=== PATIENT | female | born 1955 | race Caucasian/White ===

== ENCOUNTER 2019-06-19 09:32 | Day surgery (SDC) | payer MEDICARE, OTHER ==
[~2019-06-19] VITALS: Ht 160 cm; Wt 95.7 kg
[2019-06-19 10:04] VITALS: BP 162/78
== END 2019-06-19 14:20 | disposition home or self-care (01) ==
LOC: OUT 09:32
PROVIDERS: ATTEND Surgery
DX: D24.2 Benign neoplasm of left breast (principal); I25.10 Atherosclerotic heart disease of native coronary artery without angina pectoris; I25.2 Old myocardial infarction; E11.9 Type 2 diabetes mellitus without complications; K21.9 Gastro-esophageal reflux disease without esophagitis; Z79.02 Long term (current) use of antithrombotics/antiplatelets; Z88.0 Allergy status to penicillin; Z88.1 Allergy status to other antibiotic agents; Z95.5 Presence of coronary angioplasty implant and graft
CPT/HCPCS: 19120; 82962; 88305; 93005; J0171; J0330; J0690; J1100; J2250; J2405; J2704; J2710; J3010; J7120; Q0162

== ENCOUNTER 2021-07-04 07:41 | Observation (INO) | payer OTHER ==
[~2021-07-04] VITALS: Ht 160 cm; Wt 95.5 kg
[~2021-07-04 07:41] MED LIST: ASPI-152 PO; BENA20TA61 PO; BENA40TA3 PO; BIOT10TA PO; CALC-141 PO; CHOL100012 PO; CLOP75TA52 PO; CYAN50002 PO; CYAN50LO PO; EZET10TA70 PO; FURO-92 PO; FURO40TA6 PO; FURO80TA3 PO; HYDR25TA6 PO; LEVO75TA PO; METF-163 PO; METO25TA2 PO; NITR0.4T28 SL; OMEG500C PO; PRAV80TA PO; RABE20TA18 PO; RANI-467 PO
[2021-07-04] MEDS ORDERED: FLUT9.9S NAS (08:19)
[2021-07-04] MEDS ORDERED: OMEP-110 PO (08:19)
[2021-07-04] MEDS ORDERED: ESTR42.58 VG (08:19)
[2021-07-04] MEDS ORDERED: NITR0.6T4 SL (08:19)
[2021-07-04] MEDS ORDERED: CLOB15CR19 TP (08:19)
[2021-07-04] MEDS ORDERED: FURO20TA3 PO (08:19)
[2021-07-04] MEDS ORDERED: OMEG-158 PO (08:19)
[2021-07-04 08:39] VITALS: BP 155/67
[2021-07-04 09:02] LABS: BASOPHILS % (AUTO) 1 % (0-1); EOSINOPHILS % (AUTO) 3 % (1-7); LYMPHOCYTES % (AUTO) 26 % (22-44); MEAN CORPUSCULAR HEMOGLOBIN 30.2 pg (27.0-34.8); MEAN CORPUSCULAR HGB CONC 33.4 g/dL (32.4-35.8); MEAN PLATELET VOLUME 8.3 fL (7.4-10.4); MONOCYTES % (AUTO) 8 % (2-9); NEUTROPHILS % (AUTO) 62 % (42-75); PLATELET COUNT 250 x10^3/uL (130-400); RED CELL DISTRIBUTION WIDTH 13.2 % (9.6-15.2)
[2021-07-04 09:14] LABS: INTERNATIONAL NORMALIZED RATIO 0.99 (0.93-1.1); PROTHROMBIN TIME 10.6 Seconds (9.6-11.5)
[2021-07-04 09:15] LABS: ALBUMIN 3.4 g/dL (3.4-5.0); ANION GAP 6 mmol/L (5-15); CALCIUM 9.1 mg/dL (8.5-10.1); CHLORIDE 108 mmol/L (98-107)
[2021-07-04 09:18] LABS: ALANINE AMINOTRANSFERASE 38 U/L (12-78); ALKALINE PHOSPHATASE 94 U/L (45-117); BILIRUBIN,TOTAL 0.5 mg/dL (0.2-1.0); CREATININE 1.09 mg/dL (0.55-1.02); TOTAL PROTEIN 6.9 g/dL (6.4-8.2)
[2021-07-04] MEDS ORDERED: MIDAZOLAM 1 MG/ML, 5ML ONE (10:07)
[2021-07-04] MEDS ORDERED: FENTANYL PF 100 MCG/2ML ONE ×2 (10:07→11:34)
[2021-07-04] MEDS ORDERED: LIDOCAINE 2%, 20ML ONE (10:08)
[2021-07-04] MEDS ORDERED: MIDAZOLAM 1 MG/ML, 2ML ONE (11:33)
[2021-07-04] MEDS ORDERED: BIVALIRUDIN 250 MG ONE (12:20)
[2021-07-04] MEDS: SODIUM CHLORIDE 0.9% 1,000 ML IV SCH ×2 (13:00→20:11)
[2021-07-04] MEDS ORDERED: CLOBETASOL PROPIONATE CRM 0.05%, 15GM TP PRN (13:00)
[2021-07-04] MEDS ORDERED: BIVALIRUDIN 250 MG in SODIUM CHLORIDE 0.9% 50 ML IV SCH (13:00)
[2021-07-04 15:49] VITALS: BP 136/64
[2021-07-04] MEDS: metFORMIN 500 MG TABLET PO SCH (16:52)
[2021-07-04 19:44] VITALS: BP 147/72
[2021-07-04] MEDS ORDERED: OXYcodone/APAP 5/325MG TABLET PO PRN (20:30)
[2021-07-04] MEDS: ACETAMINOPHEN 325 MG TABLET PO PRN (20:59)
[2021-07-04] MEDS ORDERED: ATORVASTATIN 20 MG TABLET PO SCH (21:00)
[2021-07-05 01:35] VITALS: BP 144/66
[2021-07-05] MEDS: SODIUM CHLORIDE 0.9% 1,000 ML IV SCH (03:08)
[2021-07-05 04:49] LABS: ANION GAP 5 mmol/L (5-15); CALCIUM 9.3 mg/dL (8.5-10.1); CHLORIDE 110 mmol/L (98-107); CREATININE 1.05 mg/dL (0.55-1.02)
[2021-07-05] MEDS ORDERED: OMEPRAZOLE 20 MG CAPSULE.DR PO SCH (06:00)
[2021-07-05] MEDS ORDERED: LEVOTHYROXINE 75 MCG TABLET PO SCH (06:00)
[2021-07-05 06:52] VITALS: BP 148/82
[2021-07-05] MEDS: metFORMIN 500 MG TABLET PO SCH (08:24)
[2021-07-05] MEDS: ACETAMINOPHEN 325 MG TABLET PO PRN (08:28)
[2021-07-05] MEDS ORDERED: FLUTICASONE NASAL SPRAY 16GM NAS SCH (09:00)
[2021-07-05] MEDS ORDERED: EZETIMIBE 10 MG TABLET PO SCH (09:00)
[2021-07-05] MEDS ORDERED: ASPIRIN 81 MG TABLET EC PO SCH (09:00)
[2021-07-05] MEDS ORDERED: BENAZEPRIL 20 MG TABLET PO SCH (09:00)
[2021-07-05] MEDS ORDERED: CLOPIDOGREL 75 MG TABLET PO SCH (09:00)
[2021-07-05] MEDS ORDERED: FUROSEMIDE 80 MG TABLET PO SCH (09:00)
[2021-07-05] MEDS ORDERED: ASPI81TA45 PO (09:22)
[2021-07-05] MEDS ORDERED: ACET325T26 PO (09:22)
== END 2021-07-05 10:22 | disposition home or self-care (01) ==
LOC: CACL 07:41 → 5SO 13:31 → CACL 22:21
PROVIDERS: ADMIT Internal Medicine Cardiovascular Disease; ATTEND Internal Medicine Cardiovascular Disease
DX: I25.10 Atherosclerotic heart disease of native coronary artery without angina pectoris (principal); R07.9 Chest pain, unspecified; R94.39 Abnormal result of other cardiovascular function study; I10 Essential (primary) hypertension; E78.5 Hyperlipidemia, unspecified; E03.9 Hypothyroidism, unspecified; E11.9 Type 2 diabetes mellitus without complications; K21.9 Gastro-esophageal reflux disease without esophagitis; E66.9 Obesity, unspecified; Z95.5 Presence of coronary angioplasty implant and graft; Z87.891 Personal history of nicotine dependence; Z90.710 Acquired absence of both cervix and uterus; Z79.82 Long term (current) use of aspirin; Z79.899 Other long term (current) drug therapy; Z88.0 Allergy status to penicillin
CPT/HCPCS: 36415; 80048; 80053; 85025; 85610; 93454; 93458; 99156; C1725; C1760; C1769; C1874; C1887; C1894; C9600; G0378; J0583; J2250; J3010; J3490; Q9967